=== PATIENT | female | born 1965 | race Caucasian/White ===

== ENCOUNTER 2016-09-26 12:19 | Emergency (ER) | payer OTHER ==
[~2016-09-26 12:19] MED LIST: ABILIFY5 MG PO; ACETAMINOPHEN PO; ACETAMINOPHEN-1 EAC1 PO; ACETAMINOPHEN325 MG PO; AMITRIPTYLINE H25 MG PO; AMPHETAMINE SAL10 MG PO; CARAFATE1 GM PO; CYCLOBENZAPRINE10 MG PO; DEXTROAMPHETAMI10 MG PO; EVEKEO10 MG PO; FERROUS GLUCON324 M1 PO; FERROUS SULFAT325 MG PO; IMITREX100 MG PO; KLONOPIN2 MG PO; LEVAQUIN750 MG PO; LORTAB 5-325 M1 EACH PO; LUNESTA3 MG PO; LYRICA200 MG PO; LYRICA300 MG PO; OMEPRAZOLE40 MG PO; PAXIL CR25 MG PO; PAXIL20 MG PO; PAXIL40 MG PO; PROAIR HFA8.5 GM IH; PROPRANOLOL HCL10 MG PO; TECFIDERA120 MG PO; TRAMADOL HCL50 MG PO; VITAMIN D32000 UNI1 PO; VITAMIN D350000 UNIT PO; XANAX1 MG PO; [UNRECOGNIZED DRUG - OTHER] PO
== END 2016-09-26 13:00 | disposition left against medical advice (07) ==
LOC: ER 12:19
DX: Z53.21 Procedure and treatment not carried out due to patient leaving prior to being seen by health care provider (principal)